=== PATIENT | male | born 1985 | race Two or more races ===

== ENCOUNTER 2017-10-01 05:10 | Emergency (ER) | payer BC ==
[~2017-10-01] VITALS: Ht 188 cm; Wt 83.9 kg
[2017-10-01 05:40] VITALS: BP 116/63
--- NOTE | 2017-10-01 05:40 | Emergency Room Report ---
History of Present Illness General Chief Complaint: Headache Source: Patient Present Illness HPI Is a 31-year-old male with no past medical issue. He presents with chief complaint of headache and body pain. Also subjective fever and chills. Onset for last 3 days. He called his primary care Dr. place him on Cipro and another. Had one days worth. Not getting better. Has photophobia and nauseousness. Worse with standing and walking. Nausea but no vomiting. No diarrhea. Pain is 10 out of 10. Allergies: Coded Allergies: No Known Allergies (Unverified , 10/01/17) Patient History Past Medical History: see triage record, old chart reviewed Past Surgical History: none Pertinent Family History: none Social History: Denies: smoking Immunizations: other Reviewed Nursing Documentation: PMH: Agreed, PSxH: Agreed Review of Systems Constitutional: Reports: chills, fever Eye: Reports: eye pain, Denies: blurred vision ENT: Denies: ear pain, nose congestion, throat swelling Respiratory: Denies: cough, shortness of breath Cardiovascular: Denies: chest pain, palpitations Gastrointestinal: Denies: abdominal pain, diarrhea, nausea, vomiting Musculoskeletal: Denies: back pain, joint pain Skin: Denies: rash Neurological: Denies: headache, numbness Endocrine: Denies: increased thirst, increased urine Hematologic/Lymphatic: Denies: easy bruising All Other Systems: negative except mentioned in HPI Physical Exam Vital Signs Date Time Temp Pulse Resp B/P (MAP) Pulse Ox O2 Delivery O2 Flow Rate FiO2 10/01/17 05:19 100.6 94 18 116/63 98 vital fever Sp02 EP Interpretation: reviewed, normal General Appearance: well appearing, no apparent distress, alert Head: normocephalic, atraumatic Eyes: bilateral eye PERRL, bilateral eye EOMI ENT: hearing grossly normal, normal pharynx Neck: full range of motion, supple, no meningismus Respiratory: chest non-tender, lungs clear, normal breath sounds Cardiovascular #1: regular rate, rhythm, no murmur Gastrointestinal: normal bowel sounds, non tender, no mass, no organomegaly, no bruit, non-distended Musculoskeletal: back normal, gait/station normal, normal range of motion Psychiatric: mood/affect normal Skin: warm/dry Medical Decision Making Diagnostic Impression: Primary Impression: Headache Qualified Codes: R51 - Headache Additional Impression: Influenza ER Course Patient presents with a fever and headache. His headache is mostly frontal in nature. He is moving his neck without any difficulty. I see no evidence of bacterial meningitis, sepsis, pneumonia to name a few. Symptoms consistent with influenza-like illness. [place] better after medication. Labs unremarkable we'll discharge home. Last Vital Signs Date Time Temp Pulse Resp B/P (MAP) Pulse Ox O2 Delivery O2 Flow Rate FiO2 10/01/17 05:19 100.6 94 18 116/63 98 Status: improved Disposition: HOME, SELF-CARE Condition: Stable Scripts Ibuprofen* (MOTRIN*) 600 Mg Tablet 600 MG ORAL THREE TIMES A DAY, #30 TAB 0 Refills Prov: LOS SANTIAGO M.D. 10/01/17 Oseltamivir Phosphate (Tamiflu) 75 Mg Capsule 75 MG ORAL TWICE A DAY, #10 CAP Prov: LOS SANTIAGO M.D. 10/01/17 Patient Instructions: Sinus Headache Additional Instructions: Followup with your Dr. in 3-5 days. Increase fluids. Return if worse. LOS SANTIAGO M.D. Oct 01, 2017 05:40
[2017-10-01] MEDS ORDERED: Ketorolac 30mg Inj IV ONE (05:45)
[2017-10-01] MEDS ORDERED: Acetaminophen 500mg (ES) tab ORAL ONE (05:45)
[2017-10-01] MEDS ORDERED: Dexamethasone 4mg/ml vial IVP ONE (05:45)
[2017-10-01] MEDS ORDERED: Morphine Sulfate 4mg/ml Inj IVP ONE (06:15)
[2017-10-01] MEDS ORDERED: IBUPROFEN600 MG ORAL (06:17)
[2017-10-01] MEDS ORDERED: TAMIFLU75 MG ORAL (06:17)
[2017-10-01 06:30] LABS: BASOPHILS % (AUTO) 0.8 % (0.0-2.0); HEMATOCRIT 45.4 % (42.0-52.0); HEMOGLOBIN 15.8 G/DL (14.2-18.0); LYMPHOCYTES % (AUTO) 12.8 % (20.0-45.0); MEAN CORPUSCULAR VOLUME 92 FL (80-99); MONOCYTES % (AUTO) 10.3 % (1.0-10.0); NEUTROPHILS % (AUTO) 76.1 % (45.0-75.0); PLATELET COUNT 198 K/UL (150-450); RED BLOOD COUNT 4.93 M/UL (4.70-6.10); RED CELL DISTRIBUTION WIDTH 10.7 % (11.6-14.8); WHITE BLOOD COUNT 5.5 K/UL (4.8-10.8)
[2017-10-01 06:47] LABS: ANION GAP 13 mmol/L (5-15); BLOOD UREA NITROGEN 14 mg/dL (7-18); CALCIUM 8.2 MG/DL (8.5-10.1); CARBON DIOXIDE 23 MMOL/L (21-32); CHLORIDE 102 MMOL/L (98-107); CREATININE 0.9 MG/DL (0.55-1.30); POTASSIUM 3.7 MMOL/L (3.5-5.1); SODIUM 138 MMOL/L (136-145)
[2017-10-01] MEDS ORDERED: Oxymetazoline 0.05% Na Spray 30ml NASAL ONE (07:30)
[2017-10-01 08:05] VITALS: BP 112/56
[2017-10-01 08:32] VITALS: BP 112/56
== END 2017-10-01 08:32 | disposition home or self-care (01) ==
LOC: EMR 05:59
DX: R51 Headache (principal); J11.1 Influenza due to unidentified influenza virus with other respiratory manifestations; H53.149 Visual discomfort, unspecified; R11.0 Nausea
CPT/HCPCS: 36415; 80048; 85025; 96374; 96375; 99284; J1100; J1885; J2270; J2405

== ENCOUNTER 2018-04-21 22:03 | Emergency (ER) | payer BC, OTHER ==
[~2018-04-21] VITALS: Ht 190.5 cm; Wt 88.5 kg
[~2018-04-21 22:03] MED LIST: IBUPROFEN600 MG ORAL; TAMIFLU75 MG ORAL
[2018-04-21] MEDS ORDERED: IBUPROFEN600 MG ORAL (22:30)
--- NOTE | 2018-04-21 22:36 | Emergency Room Report ---
History of Present Illness General Chief Complaint: Skin Rash/Abscess Source: Patient Present Illness HPI Patient presents reporting that he has a skin lesion in the right lower jawline area Has caused some discomfort patient initially reported that he spoke to his physician Was told to come to the emergency room for steroid injection Reports of the area has flared up over the past 3-4 days Was put on antibiotics yesterday by his primary physician Pain is a sharp shooting type pain in the lower jawline Denies any fevers or chills denies any trismus Patient reports that he also has pictures to be taken tomorrow and the area is not able to be easily covered with makeup After further discussion patient also asking regarding different pain medication , he reports that he was told that there was morphine patch that could be placed Allergies: Coded Allergies: No Known Allergies (Unverified , 04/21/18) Patient History Past Medical History: see triage record Pertinent Family History: none Reviewed Nursing Documentation: PMH: Agreed; PSxH: Agreed Nursing Documentation-PMH Past Medical History: No History, Except For Review of Systems All Other Systems: negative except mentioned in HPI Physical Exam Vital Signs Date Time Temp Pulse Resp B/P (MAP) Pulse Ox O2 Delivery O2 Flow Rate FiO2 04/21/18 22:11 98.2 62 16 136/60 95 Room Air 98.2 Sp02 EP Interpretation: reviewed, normal General Appearance: well appearing, no apparent distress Head: normocephalic, atraumatic Eyes: bilateral eye PERRL, bilateral eye EOMI ENT: hearing grossly normal, normal pharynx Neck: supple Musculoskeletal: normal inspection Neurologic: alert, oriented x3, responsive Skin: other - 2 small areas of what appears to be likely folliculitis just at the angle of the jaw on the right side, approximately 3 mm. No obvious fluctuance, no palpable lymphadenopathy Lymphatic: no adenopathy Medical Decision Making Diagnostic Impression: Primary Impression: folliculitis ER Course At this time there are no areas for incision no obvious fluctuance I discussed with the patient that steroid injections into this area is not indicated emergently Regarding morphine patch and other pain patient appears to have multiple [place] medications from primary physician He reports that he is also under pain management And I referred him to follow closely with his pain management for that Otherwise compresses anti-inflammatory and patient requires close outpatient follow-up Last Vital Signs Date Time Temp Pulse Resp B/P (MAP) Pulse Ox O2 Delivery O2 Flow Rate FiO2 04/21/18 22:11 98.2 62 16 136/60 95 Room Air 98.2 Status: unchanged Disposition: HOME, SELF-CARE Condition: Stable Scripts Ibuprofen* (MOTRIN*) 600 Mg Tablet 600 MG ORAL Q8H PRN for For Pain, #20 TAB 0 Refills Prov: Demetrius Orr DO 04/21/18 Patient Instructions: Folliculitis Additional Instructions: Patient is provided with the discharge instructions notified to follow up with primary doctor in the next 2-3 days otherwise return to the er with any worsening symptoms. Please note that this report is being documented using [employer] technology. This can lead to erroneous entry secondary to incorrect interpretation by the dictating instrument. Demetrius Orr DO Apr 21, 2018 22:36
[2018-04-21 22:39] VITALS: BP 136/60
== END 2018-04-21 22:40 | disposition home or self-care (01) ==
LOC: EMR 22:40
DX: L73.8 Other specified follicular disorders (principal)
CPT/HCPCS: 99283

== ENCOUNTER 2018-10-03 19:37 | Emergency (ER) | payer OTHER ==
[~2018-10-03] VITALS: Ht 190.5 cm; Wt 90.7 kg
[2018-10-03] MEDS ORDERED: XYOSTED50 MG/0.5 SQ (19:50)
[2018-10-03 19:55] VITALS: BP 136/61
--- NOTE | 2018-10-03 20:02 | Emergency Room Report ---
History of Present Illness General Chief Complaint: Skin Rash/Abscess Source: Patient Present Illness HPI This is a 32-year-old male who presents with chief complaint of infection to the area right deltoid area. He usually get injection of testosterone by his hop strainer. Because of the holiday weekend he injected himself 2 days ago. Now is getting red and swollen. Tender to palpation. No drainage. Never had any history of abscess before. Pain is 8 out of 10. Worse with palpation. Nothing made it better. Allergies: Coded Allergies: No Known Allergies (Unverified , 04/21/18) Patient History Past Medical History: see triage record, old chart reviewed Past Surgical History: none Pertinent Family History: none Social History: Denies: smoking Immunizations: other Reviewed Nursing Documentation: PMH: Agreed; PSxH: Agreed Review of Systems Eye: Denies: eye pain, blurred vision ENT: Denies: ear pain, nose congestion, throat swelling Respiratory: Denies: cough, shortness of breath Cardiovascular: Denies: chest pain, palpitations Gastrointestinal: Denies: abdominal pain, diarrhea, nausea, vomiting Musculoskeletal: Denies: back pain, joint pain Skin: Reports: lesions; Denies: rash Neurological: Denies: headache, numbness Endocrine: Denies: increased thirst, increased urine Hematologic/Lymphatic: Denies: easy bruising All Other Systems: negative except mentioned in HPI Physical Exam Vital Signs Date Time Temp Pulse Resp B/P (MAP) Pulse Ox O2 Delivery O2 Flow Rate FiO2 10/03/18 19:44 97.9 91 18 136/61 96 Room Air vitals normal Sp02 EP Interpretation: reviewed, normal General Appearance: well appearing, no apparent distress, alert Head: normocephalic, atraumatic Eyes: bilateral eye PERRL, bilateral eye EOMI ENT: hearing grossly normal, normal pharynx Neck: full range of motion, supple, no meningismus Respiratory: chest non-tender, lungs clear, normal breath sounds Cardiovascular #1: regular rate, rhythm, no murmur Gastrointestinal: normal bowel sounds, non tender, no mass, no organomegaly, no bruit, non-distended Musculoskeletal: back normal, gait/station normal, normal range of motion, other - Right shoulder: Over the deltoid anteriorly, there is an indurated area of 2-3 cm with surrounding erythema. There is warm to the touch. No crepitance. Psychiatric: mood/affect normal Skin: warm/dry Procedures Incision and Drainage Incision and Drainage : Consent: Verbal Site: Right arm Blade Size: 11 I & D Procedure: betadine prep, sterile drapes applied Wound Location: upper extremity Anesthesia: 1% Lidocaine Volume Anesthetic (ccs): 3 Patient Tolerated: Well Complications: None Progress Area clean with Betadine. A made a 1 cm incision. Using a forcep I broke up loculated area. There was small to moderate amount of pus expressed. Patient tolerated procedure without a problem. No Complication. Medical Decision Making Diagnostic Impression: Primary Impression: Abscess of arm, right ER Course Patient with an abscess and cellulitis to the right deltoid area. No evidence of necrotizing fasciitis or foreign body. We'll discharge home. Last Vital Signs Date Time Temp Pulse Resp B/P (MAP) Pulse Ox O2 Delivery O2 Flow Rate FiO2 10/03/18 19:55 97.9 78 18 136/61 96 Room Air Status: improved Disposition: HOME, SELF-CARE Condition: Stable Scripts Ondansetron (Zofran) 4 Mg Tablet 4 MG ORAL Q6H PRN for Nausea & Vomiting, #10 TAB 0 Refills Prov: Sky Sanderson MD 10/03/18 Mupirocin* (MUPIROCIN*) 22 Gm Oint...g. 1 APPLIC TOPIC THREE TIMES A DAY, #22 GM Prov: Sky Sanderson MD 10/03/18 Hydrocodone/Acetaminophen 5-325* (HYDROCODONE/ACETAMINOPHEN 5-325*) 1 Each Tablet 1 TAB ORAL Q6H PRN for For Pain, #10 TAB 0 Refills Prov: Sky Sanderson MD 10/03/18 Trimethoprim/Sulfamethoxazole 160/800* (BACTRIM DS TABLET*) 1 Each Tablet 1 TAB ORAL Q12H, #14 TAB 0 Refills Prov: Sky Sanderson MD 10/03/18 Patient Instructions: Abscess Additional Instructions: Follow-up in 2-3 days for recheck. Return sooner if not better. Sky Sanderson MD Oct 03, 2018 20:01
[2018-10-03] MEDS ORDERED: Norco 5mg/325mg tab ORAL ONE (20:15)
[2018-10-03] MEDS ORDERED: Bactrim-DS 1 tab ORAL ONE (20:15)
[2018-10-03] MEDS ORDERED: HYDROCODON-ACE1 EA15 ORAL (20:18)
[2018-10-03] MEDS ORDERED: ZOFRAN4 MG ORAL (20:18)
[2018-10-03] MEDS ORDERED: MUPIROCIN22 GM TOPIC (20:18)
[2018-10-03] MEDS ORDERED: BACTRIM DS TAB1 EAC1 ORAL (20:18)
[2018-10-03 20:28] VITALS: BP 128/75
== END 2018-10-03 20:28 | disposition home or self-care (01) ==
LOC: EMR 19:50
DX: L02.413 Cutaneous abscess of right upper limb (principal)
CPT/HCPCS: 99283

== ENCOUNTER 2019-04-16 18:58 | Emergency (ER) | payer SELFPAY ==
[~2019-04-16] VITALS: Ht 190.5 cm; Wt 79.8 kg
[~2019-04-16 18:58] MED LIST changes: +BACTRIM DS TAB1 EAC1 ORAL; +HYDROCODON-ACE1 EA15 ORAL; +MUPIROCIN22 GM TOPIC; +XYOSTED50 MG/0.5 SQ; +ZOFRAN4 MG ORAL
--- NOTE | 2019-04-16 19:15 | NUR ---
ED Nurse Note: Pt is here for pain medication [place] 10-3 for chronic pain, could not get appointment with pain management Pt is AO x 4times, VSS, on room air no distress. LEA seen Pt at bedside.
[2019-04-16 19:23] VITALS: BP 123/84
--- NOTE | 2019-04-16 20:20 | Emergency Room Report ---
History of Present Illness General Chief Complaint: Pain Source: Patient Present Illness Allergies: Coded Allergies: No Known Allergies (Unverified , 04/21/18) Nursing Documentation-[facility] Past Medical History: No History, Except For Physical Exam Vital Signs Date Time Temp Pulse Resp B/P (MAP) Pulse Ox O2 Delivery O2 Flow Rate FiO2 04/16/19 19:04 98.4 90 20 111/61 (78) 98 Room Air Medical Decision Making Diagnostic Impression: Primary Impression: Encounter for medication refill Additional Impression: Chronic pain Qualified Codes: G89.29 - Other chronic pain Last Vital Signs Date Time Temp Pulse Resp B/P (MAP) Pulse Ox O2 Delivery O2 Flow Rate FiO2 04/16/19 19:23 98.1 87 20 123/84 100 Room Air Disposition: HOME, SELF-CARE Condition: Stable Patient Instructions: Medicine Refill at the Emergency Department Additional Instructions: Take any previously prescribed medications as directed. Follow up with a Primary Care Provider or Ear Muff Assembler in 3-5 days, even if your symptoms have resolved. --Please review list of primary care clinics, if you do not already have a primary care provider Return sooner to ED if new symptoms occur, or current symptoms become worse. Do not drink alcohol, drive, or operate heavy machinery while taking [place] as this may cause drowsiness. - Please note that this Emergency Department Report was dictated using [employer] ops planner technology software, occasionally this can lead to erroneous entry secondary to interpretation by the dictation equipment. Frances lCemens Apr 16, 2019 20:20
[2019-04-16] MEDS ORDERED: IBUPROFEN600 MG ORAL (20:21)
[2019-04-16] MEDS ORDERED: HYDROcodone/Acetamin 7.5/325 tab ORAL ONE (20:30)
[2019-04-16 20:42] VITALS: BP 117/79
[2019-04-16 20:43] VITALS: BP 117/79
--- NOTE | 2019-04-16 20:43 | NUR ---
ER DISCHARGE NOTE: Patient is cleared to be discharged per ERMD, pt is aox4, on room air, with stable vital signs. pt was given dc and prescription instructions, pt was able to verbalize understanding, pt id band removed without complications. pt is able to ambulate with steady gait with father. pt took all belongings.
== END 2019-04-16 22:22 | disposition home or self-care (01) ==
LOC: EMR 19:54
DX: G89.29 Other chronic pain (principal)
CPT/HCPCS: 99282

== ENCOUNTER 2020-09-08 18:47 | Emergency (ER) | payer SELFPAY ==
[~2020-09-08] VITALS: Ht 190.5 cm; Wt 81.6 kg
[2020-09-08 19:14] VITALS: BP 131/82
--- NOTE | 2020-09-08 19:14 | NUR ---
ED Nurse Note: walked in to ed c/o "parasite" in face onset 2 months ago. per pt, he noted bleeding that started 2 months ago that got "infected" and formed scars and pain. denies any fever or sob at this time. patient ao4 with no acute distress. vitals stable. all safety measures met.
[2020-09-08] MEDS ORDERED: IVERMECTIN3 MG PO (19:27)
[2020-09-08] MEDS ORDERED: MUPIROCIN22 GM TOPIC (19:27)
[2020-09-08 19:30] VITALS: BP 131/82
--- NOTE | 2020-09-08 19:30 | NUR ---
ER DISCHARGE NOTE: Patient is cleared to be discharged per ERMD, pt is aox4, on room air, with stable vital signs. pt was given dc and prescription instructions, pt was able to verbalize understanding, pt id band removed. pt is able to ambulate with steady gait. pt took all belongings.
--- NOTE | 2020-09-09 17:06 | Emergency Room Report ---
History of Present Illness General Chief Complaint: Skin Rash/Abscess Source: Patient Present Illness HPI 34-year-old male presents to ED for evaluation of rash. States that he is got a parasite on his face for the last 3 months. Started out as a rash which got progressively worse. States he has been seen at multiple hospitals including [facility]. Has been seen by his PMD. States there is something moving inside his face. Pain is dull, 6 out of 10, nonradiating. Denies fevers or chills. No other aggravating relieving factors. Denies any other associated symptoms Allergies: Coded Allergies: No Known Allergies (Unverified , 04/21/18) COVID-19 Screening Contact w/high risk pt: No Experienced COVID-19 symptoms?: No COVID-19 Testing performed LUMBER TALLIER: No Patient History Past Medical History: none Past Surgical History: none Pertinent Family History: none Social History: Denies: smoking, alcohol use, drug use Immunizations: UTD Reviewed Nursing Documentation: PMH: Agreed; PSxH: Agreed Nursing Documentation-PMH Past Medical History: No Stated History Review of Systems All Other Systems: negative except mentioned in HPI Physical Exam Vital Signs Date Time Temp Pulse Resp B/P (MAP) Pulse Ox O2 Delivery O2 Flow Rate FiO2 09/08/20 18:50 97.9 63 16 131/82 (98) 99 Room Air Sp02 EP Interpretation: reviewed, normal General Appearance: no apparent distress, alert, GCS 15, non-toxic Head: normocephalic, atraumatic Eyes: bilateral eye normal inspection, bilateral eye PERRL ENT: hearing grossly normal, normal pharynx, no angioedema, normal voice Neck: full range of motion, supple/symm/no masses Respiratory: chest non-tender, lungs clear, normal breath sounds, speaking full sentences Cardiovascular #1: regular rate, rhythm, no edema Cardiovascular #2: 2+ carotid (R), 2+ carotid (L), 2+ radial (R), 2+ radial (L), 2+ dorsalis pedis (R), 2+ dorsalis pedis (L) Gastrointestinal: normal bowel sounds, non tender, soft, non-distended, no guarding, no rebound Rectal: deferred Genitourinary: normal inspection, no CVA tenderness Musculoskeletal: back normal, normal range of motion, gait/station normal, non- tender Neurologic: alert, motor strength/tone normal, oriented x3, sensory intact, responsive, speech normal Psychiatric: judgement/insight normal, memory normal, mood/affect normal, no suicidal/homicidal ideation Reflexes: 3+ bicep (R), 3+ bicep (L), 3+ tricep (R), 3+ tricep (L), 3+ knee (R), 3+ knee (L) Skin: other - scabbing scar noted bilateral malar region. Lymphatic: no adenopathy Medical Decision Making Diagnostic Impression: Primary Impression: Rash and other nonspecific skin eruption ER Course Hospital Course 34-year-old male presents with rash to face Differential diagnoses include: Cellulitis, dermatitis, insect bite, abscess Clinical course Patient placed on stretcher. After initial history, physical exam reveals male in no acute distress. On exam there is a fairly large scabbing rash in the bilateral malar region. Areas where the scab is removed there is significant breakdown of skin. On close observation I see no evidence of a parasite. patient states he is received multiple evaluations for this including comprehensive work-up at [facility]. Is not acute. This is been there for several months. Encourage patient to follow-up with his PMD for coordination of care including possible plastic referral. We will should start short course of ivermectin however is not clear whether this is parasitic Diagnosis -rash stable and discharged to home with prescription for Ivermectin. Instructed to followup with PMD. Instructed return to ED if symptoms recur or worsen Last Vital Signs Date Time Temp Pulse Resp B/P (MAP) Pulse Ox O2 Delivery O2 Flow Rate FiO2 09/08/20 19:30 97.9 63 16 131/82 99 Room Air Status: improved Disposition: HOME, SELF-CARE Condition: Stable Scripts Ivermectin (Ivermectin) 3 Mg Tablet 15 MG PO DAILY, #10 TAB Prov: Blaine Leonard MD 09/08/20 Mupirocin* (MUPIROCIN*) 22 Gm Oint...g. 1 APPLIC TOPIC THREE TIMES A DAY, #22 GM Prov: Blaine Leonard MD 09/08/20 Referrals: NON PHYSICIAN (PCP) Patient Instructions: Blaine Lockhart MD Sep 09, 2020 17:06
== END 2020-09-08 19:30 | disposition home or self-care (01) ==
LOC: EMR 19:30
DX: R21 Rash and other nonspecific skin eruption (principal)
CPT/HCPCS: 99282